=== PATIENT | female | born 1995 | race African-American/Black ===

== ENCOUNTER 2018-10-11 17:53 | Emergency (ER) | payer OTHER ==
[~2018-10-11] VITALS: Ht 175.3 cm; Wt 104.3 kg
[2018-10-11 18:00] VITALS: BP 134/80
[2018-10-11] MEDS ORDERED: HYDR-3165 PO (19:01)
[2018-10-11] MEDS ORDERED: SULF1TAB24 PO (19:01)
[2018-10-11] MEDS ORDERED: MELO7.5T29 PO (19:01)
--- NOTE | 2018-10-11 19:02 | PHYS DOC ---
Past History Past Medical History: Anxiety, Asthma Past Surgical History: No Surgical History Smoking: Non-smoker Alcohol Use: None Drug Use: None Adult General Chief Complaint Chief Complaint: ABSCESS HPI HPI Patient is a 23-year-old female presents complaining of a boil in her right armpit. It has been present and getting worse for the past week. No drainage. No recent antibiotics. Increased pain with movement. No radiation of discomfort. No fever. Pain is moderate in intensity.[] Review of Systems Review of Systems Constitutional: Denies fever or chills [] Eyes: Denies change in visual acuity, redness, or eye pain [] HENT: Denies nasal congestion or sore throat [] Respiratory: Denies cough or shortness of breath [] Cardiovascular: No additional information not addressed in HPI [] GI: Denies abdominal pain, nausea, vomiting, bloody stools or diarrhea [] : Denies dysuria or hematuria [] Musculoskeletal: Denies back pain or joint pain [] Integument: See history of present illness[] Neurologic: Denies headache, focal weakness or sensory changes [] Endocrine: Denies polyuria or polydipsia [] All other systems were reviewed and found to be within normal limits, except as documented in this note. Allergies Allergies Allergies Coded Allergies Type Severity Reaction Last Updated Verified No Known Drug Allergies 02/20/15 No Physical Exam Physical Exam Constitutional: Well developed, well nourished, no acute distress, non-toxic appearance. [] HENT: Normocephalic, atraumatic, bilateral external ears normal, oropharynx moist, no oral exudates, nose normal. [] Eyes: PERRLA, EOMI, conjunctiva normal, no discharge. [] Neck: Normal range of motion, no tenderness, supple, no stridor. [] Cardiovascular:Heart rate regular rhythm, no murmur [] Lungs & Thorax: Bilateral breath sounds clear to auscultation [] Abdomen: Not examined. [] Skin: Warm, dry. Right axilla has a 1 x 2 cm region of erythema and induration. No fluctuance. No adenopathy present. No drainage. [] Back: No tenderness, no CVA tenderness. [] Extremities: No tenderness, no cyanosis, no clubbing, ROM intact, no edema. [] Neurologic: Alert and oriented X 3, normal motor function, normal sensory function, no focal deficits noted. [] Psychologic: Affect normal, judgement normal, mood normal. [] Current Patient Data Vital Signs Vital Signs Date Time Temp Pulse Resp B/P (MAP) Pulse Ox O2 Delivery O2 Flow Rate FiO2 10/11/18 18:00 98.3 85 18 98 Room Air EKG EKG [] Radiology/Procedures Radiology/Procedures [] Course & Med Decision Making Course & Med Decision Making Pertinent Labs and Imaging studies reviewed. (See chart for details) ED course: Patient arrived, was placed in bed, and tolerated exam well she had a needle aspiration performed, see procedure note. This was performed with any complications. She was discharged in improved condition. Medical decision making: There is no evidence of sepsis. This appears to be a cutaneous abscess. Most likely is result of an ingrown hair where she shaved in her axilla.[] Dragon Disclaimer Dragon Disclaimer This electronic medical record was generated, in whole or in part, using a voice recognition dictation system. Departure Departure: Impression: Primary Impression: Cutaneous abscess Disposition: 01 HOME, SELF-CARE Condition: IMPROVED Referrals: PCPANEL (PCP) Patient Instructions: Abscess Additional Instructions: Keep the area clean and dry. Apply warm compresses for 15 minutes at a time, at least 4 times a day. Follow-up with your regular doctor in 2 days for a wound check. Take medication as prescribed. Return to the ER if worsening pain, fever of more than 101, or any other concerns. Scripts Hydrocodone Bit/Acetaminophen (NORCO 5-325 TABLET) 1 Each Tablet 1 TAB PO Q4-6HRS for severe pain, #20 TAB Prov: BLAISE MULLINS DO 10/11/18 Meloxicam (MELOXICAM) 7.5 Mg Tablet 7.5 MG PO DAILY for PAIN, #20 TAB Prov: BLAISE MULLINS DO 10/11/18 Sulfamethoxazole/Trimethoprim (BACTRIM DS TABLET) 1 Each Tablet 2 TAB PO BID for abscess, #40 TAB Prov: BLAISE MULLINS DO 10/11/18 Incision and Drainage Indication: Right axilla abscess] Procedure: The patient was positioned appropriately and the skin over the incision site was prepped with Betadine. A needle aspiration was performed with a small amount of purulent material. The region was palpated no additional purulent material returned. Patient reported feeling better after the procedure. The patient tolerated the procedure well. Complications: None] Problem Qualifiers Primary Impression: Cutaneous abscess Site of cutaneous abscess: extremity Site of cutaneous abscess of extremity: axilla Laterality: right Qualified Codes: L02.411 - Cutaneous abscess of right axilla BLAISE MULLINS DO Oct 11, 2018 19:02
== END 2018-10-11 19:14 | disposition home or self-care (01) ==
LOC: ER 17:53
DX: L02.411 Cutaneous abscess of right axilla (principal); J45.909 Unspecified asthma, uncomplicated
CPT/HCPCS: 10160; 99284

== ENCOUNTER 2021-02-23 03:24 | Emergency (ER) | payer OTHER ==
[~2021-02-23] VITALS: Ht 170.2 cm; Wt 130.1 kg
[~2021-02-23 03:24] MED LIST: HYDR-3165 PO; MELO7.5T29 PO; SULF1TAB24 PO
--- NOTE | 2021-02-23 03:32 | PHYS DOC ---
Past History Past Medical History: Anxiety, Asthma Past Surgical History: No Surgical History Smoking: Non-smoker Alcohol Use: None Drug Use: None Adult General HPI HPI Patient is a 25-year-old female who presents with dental pain, right lower back molar that has been damaged for some time but only hurts occasionally. States this was started yesterday, is 7 out of 10, sharp in nature with no radiation. Denies any pain or trouble swallowing, fevers, chest pain, shortness of breath, abdominal pain, nausea, vomiting. States she had not had time to see a dentist yet. Review of Systems Review of Systems Review of systems otherwise unremarkable except noted in HPI Allergies Allergies Allergies Coded Allergies Type Severity Reaction Last Updated Verified No Known Drug Allergies 02/20/15 No Physical Exam Physical Exam Constitutional: Well developed, well nourished, no acute distress, non-toxic appearance. [] HENT: Normocephalic, atraumatic, bilateral external ears normal, oropharynx moist, no oral exudates, nose normal, poor dentition generally with multiple dental caries, and bottom right back molar cracked off at the gumline probably needing extraction versus root canal. [] Eyes: conjunctiva normal, no discharge. [] Neurologic: Alert and oriented X 3, no focal deficits noted. [] Psychologic: Affect normal, judgement normal, mood normal. [] EKG EKG [] Radiology/Procedures Radiology/Procedures [] Heart Score C/O Chest Pain: No Risk Factors: Risk Factors: DM, Current or recent (<one month) smoker, HTN, HLP, family history of CAD, obesity. Risk Scores: Risk Factors: DM, Current or recent (<one month) smoker, HTN, HLP, family history of CAD, obesity. Course & Med Decision Making Course & Med Decision Making Patient is a 25-year-old female presents with dental pain Vital signs not concerning. Physical exam noted above. Started on antibiotics in the ED. Given oral pain medicine and Hurricaine gel for pain relief. Discussed pain management at home. Given contact information for emergency dentist if she can get a hold of her dentist. Advised to call either her dentist here in town or the emergency dentist first thing Thursday morning and get in as soon as possible for extraction versus root canal versus filling. Gave return precautions to the ED. Patient grateful, verbalized understanding and agree with plan of discharge. [] Dragon Disclaimer Dragon Disclaimer This electronic medical record was generated, in whole or in part, using a voice recognition dictation system. Departure Departure: Impression: Primary Impression: Pain, dental Disposition: HOME / SELF CARE / HOMELESS Condition: GOOD Referrals: PCP,ANEL (PCP) LOYDA KILGORE Patient Instructions: Dental Pain Additional Instructions: Thank you for coming into the emergency department tonight and allowing us to take care of you. Please read the attached information carefully to go back over some of the things we discussed. Please take your antibiotics as prescribed and until gone. Please begin a Tylenol, ibuprofen and Orajel regimen as we discussed and demonstrated. Please follow-up with a dentist first thing Thursday to discuss your ED visit and set up a follow-up for discussions of root canal versus filling versus extraction. You are also given contact information for local free dentists and the emergency dentist The emergency dental number is [phone]. Please call first thing in the mo rning and leave a message on her answer machine and be prepared to get a call back Thursday. You can also call one of the dentists given to you in the community resource packet or your own dentist. Scripts Amoxicillin (AMOXICILLIN) 500 Mg Capsule 1 CAP PO BID for dental infection for 7 Days, #14 CAP Prov: ROOSEVELT CALHOUN MD 02/23/21 ROOSEVELT CALHOUN MD Feb 23, 2021 03:32
[2021-02-23] MEDS ORDERED: AMOX500C PO (03:41)
[2021-02-23] MEDS ORDERED: oxyCODONE/APAP 5/325 1 TAB TABLET PO ONE (03:45)
[2021-02-23] MEDS ORDERED: AMOXICILLIN 250 MG CAPSULE PO ONE (03:45)
[2021-02-23] MEDS ORDERED: BENZOCAINE ONE 20% MUCOSAL SPRAY. MM (03:45)
== END 2021-02-23 03:58 | disposition home or self-care (01) ==
LOC: ER 03:24
DX: K08.89 Other specified disorders of teeth and supporting structures (principal); J45.909 Unspecified asthma, uncomplicated
CPT/HCPCS: 99283-25